=== PATIENT | female | born 1950 | race Asian ===

== ENCOUNTER 2019-02-10 00:30 | Observation (INO) | payer BC ==
[2019-02-10 01:22] LABS: ABNORMAL IP MESSAGE 1; HEMATOCRIT 20.9 % (37.0-47.0); MEAN CORPUSCULAR HEMOGLOBIN 31.3 pg (29.0-33.0); MEAN CORPUSCULAR HGB CONC 32.5 g/dl (32.0-37.0); MEAN CORPUSCULAR VOLUME 96.3 fl (82.0-101.0); MEAN PLATELET VOLUME 11.4 fl (7.4-10.4); PLATELET COUNT 216 10^3/UL (140-415); RED BLOOD COUNT 2.17 10^6/ul (4.20-5.40); RED CELL DISTRIBUTION WIDTH 16.1 % (11.5-14.5)
[2019-02-10 01:24] LABS: ADD MAN DIFF? YES; POSITIVE DIFF @See below
[2019-02-10 01:26] LABS: HEMOGLOBIN 6.8 g/dl (12.0-16.0)
[2019-02-10 01:37] LABS: ANION GAP 6 (5-13); BLOOD UREA NITROGEN 11 mg/dl (7-20); CALCIUM 8.1 mg/dl (8.4-10.2); CARBON DIOXIDE 23 mmol/L (21-31); CHLORIDE 113 mmol/L (97-110); CREATININE 0.82 mg/dl (0.44-1.00); Estimated GFR > 60 mL/min (>60); GLUCOSE 92 mg/dl (70-220); POTASSIUM 3.4 mmol/L (3.5-5.1); SODIUM 142 mmol/L (135-144)
[2019-02-10 01:42] LABS: INR 0.92; PROTIME 12.5 Sec (11.9-14.9)
[2019-02-10 01:43] LABS: PARTIAL THROMBOPLASTIN TIME 39.6 Sec (23.0-35.0)
[2019-02-10 01:49] LABS: B-TYPE NATRIURETIC PEPTIDE 1350 PG/ML (0-125)
[2019-02-10 01:50] LABS: ANISOCYTOSIS 1+ (0-0); EOSINOPHILS % (M) 1 % (0-7); LYMPHOCYTES #M 1.3 10^3/ul (0.8-2.9); LYMPHOCYTES % (M) 22 % (15-51); METAMYELOCYTES %M 1 % (0-0); MONOCYTE #M 0.5 10^3/ul (0.3-0.9); MONOCYTES % (M) 9 % (0-11); PLATELET ESTIMATE NORMAL; POLYCHROMASIA 3+ (0-0); SEGMENTED NEUTROPHILS (M) % 67 % (39-77); SMUDGE%M 16 % (0-0)
[2019-02-10] MEDS: POTASSIUM CHLORIDE (SR) 20 MEQ TAB PO (03:16)
[2019-02-10 06:32] LABS: IRON 25 ug/dl (35-150)
[2019-02-10 06:42] LABS: % IRON SATURATION 9 % SAT (22-52); TOTAL IRON BINDING CAPACITY 264 ug/dl (241-421)
[2019-02-10] MEDS: LORAZEPAM 2 MG INJ IV (18:42)
[2019-02-10] MEDS: SOD CHLORIDE 0.9% 1,000 ML IV (18:42)
[2019-02-10] MEDS ORDERED: ACETAMINOPHEN 325 MG TAB PO (19:00)
[2019-02-10] MEDS ORDERED: ONDANSETRON 4 MG INJ IV ×2 (19:00→20:00)
[2019-02-10 19:30] LABS: IMMEDIATE SPIN CROSSMATCH 1 4
[2019-02-10] MEDS ORDERED: NACL 0.9% 3 ML SYG IV (20:00)
[2019-02-10] MEDS: DEXTROSE 5%-0.45% NACL 1,000 ML IV (22:22)
[2019-02-11] MEDS: LABETALOL HCL 20MG INJ IV (00:14)
[2019-02-11] MEDS: DEXTROSE 5%-0.45% NACL 1,000 ML IV ×2 (00:24→08:40)
[2019-02-11 06:54] LABS: ADD MAN DIFF? NO
[2019-02-11 07:04] LABS: BASOPHILS % 0.6 % (0.0-2.0); EOSINOPHILS # 0.2 10^3/ul (0.0-0.5); EOSINOPHILS % 3.2 % (0.0-7.0); HEMATOCRIT 29.9 % (37.0-47.0); HEMOGLOBIN 9.7 g/dl (12.0-16.0); LYMPHOCYTES # 1.3 10^3/ul (0.8-2.9); LYMPHOCYTES % 18.2 % (15.0-51.0); MEAN CORPUSCULAR HEMOGLOBIN 29.8 pg (29.0-33.0); MEAN CORPUSCULAR HGB CONC 32.4 g/dl (32.0-37.0); MEAN PLATELET VOLUME 12.1 fl (7.4-10.4); MONOCYTE # 0.7 10^3/ul (0.3-0.9); MONOCYTES % 10.5 % (0.0-11.0); NEUTROPHIL # 4.7 10^3/ul (1.6-7.5); NEUTROPHILS % 67.1 % (39.0-77.0); PLATELET COUNT 250 10^3/UL (140-415); RED BLOOD COUNT 3.25 10^6/ul (4.20-5.40); RED CELL DISTRIBUTION WIDTH 16.8 % (11.5-14.5)
[2019-02-12] MEDS: DEXTROSE 5%-0.45% NACL 1,000 ML IV ×2 (00:28→08:27)
[2019-02-12 06:27] LABS: HEMOGLOBIN 10.2 g/dl (12.0-16.0)
== END 2019-02-12 14:50 ==
LOC: E/R 00:30 → TEL 20:05
PROVIDERS: Pediatrics
DX: D50.0 Iron deficiency anemia secondary to blood loss (chronic) (principal); K92.2 Gastrointestinal hemorrhage, unspecified; E87.6 Hypokalemia; I10 Essential (primary) hypertension; I69.354 Hemiplegia and hemiparesis following cerebral infarction affecting left non-dominant side; R06.02 Shortness of breath
CPT/HCPCS: 36415; 36430; 71045; 78278; 80048; 83540; 83880; 84484; 85018; 85025; 85610; 85730; 86850; 86900; 86901; 86920; 87081; 93005; 96374; 99285-25; G0378